=== PATIENT | female | born 1935 | race Caucasian/White ===

== ENCOUNTER 2017-10-09 16:57 | Inpatient (IN) ==
[2017-10-09] MEDS ORDERED: DEXTROSE 50% 25 GM/50 ML SYRINGE IV ONE (17:32)
[2017-10-09] MEDS ORDERED: SODIUM CHLORIDE 0.9% 1,000 ML IV STA (17:34)
[2017-10-09] MEDS ORDERED: HYDROCORTISONE 100 MG VIAL IV STA (17:34)
[2017-10-09] MEDS ORDERED: HYDROCORTISONE 100 MG VIAL ONE (18:19)
[2017-10-09 18:34] LABS: Basophils % 0.2 % (0.0-0.8); Eosinophils # 0.2 10*3/uL (0.0-0.87); Eosinophils % 1.5 % (0.00-10.9); Hematocrit 41.3 VOL% (35.7-47.0); Hemoglobin 12.9 GM/DL (12.0-16.0); Immature Granulocytes % 0.4 %; Immature Granulocytes Absolute 0.05 #; Lymphocytes # 3.2 10*3/uL (1.4-4.0); Lymphocytes % 24.6 % (21.3-54.2); Mean Corpuscular HGB Conc 31.2 GM/DL (32-36); Mean Corpuscular Hemoglobin 29 PG (27-34); Mean Corpuscular Volume 91.2 FL (87-102); Mean Platelet Volume 10.8 FL (9.6-12.0); Monocytes # 1.7 10*3/uL (0.11-0.8); Monocytes % 13.1 % (1.7-12.7); Neutrophils # 7.8 10*3/uL (1.4-7.4); Neutrophils % 60.2 % (38.7-73.9); Platelet Count 295 T/CUMM (130-400); Red Blood Count 4.53 MC/CUMM (3.8-5.5); Red Cell Distribution Width 13.2 % (9.3-17.3); White Blood Count 12.9 T/CUMM (4-12)
[2017-10-09 18:43] LABS: PT Patient Result 10.5 SECS
[2017-10-09 18:46] LABS: Ammonia 20 UMOL/L (11-32)
[2017-10-09 18:50] LABS: Alanine Aminotransferase 25 U/L (13-56); Albumin 2.8 G/DL (3.4-5.0); Alkaline Phosphatase 93 U/L (45-117); Aspartate Amino Transferase 89 U/L (0-37); Blood Urea Nitrogen 24 MG/DL (7-18); Calcium 8.8 MG/DL (8.5-10.1); Glucose 92 MG/DL (74-106); Osmolality,Calculated 276.8 MOS/KG (273-304); Sodium 137 MMOL/L (136-145); Total Protein 6.8 G/DL (6.4-8.3); Troponin I Only < 0.015 NG/ML (0.00-0.045)
[2017-10-09 18:52] LABS: Potassium 6.4 MMOL/L (3.5-5.1)
[2017-10-09] MEDS ORDERED: CALCIUM CHLORIDE 1,000 MG/10 ML SYRINGE IV STA (18:53)
[2017-10-09] MEDS ORDERED: SODIUM POLYSTYRENE SULFATE 15 GM/60 ML BOTTLE PO STA (18:53)
[2017-10-09] MEDS ORDERED: SODIUM BICARBONATE 50 MEQ/50 ML VIAL IV STA (18:53)
[2017-10-09 19:13] LABS: Apearance,Urine CLEAR (Clear); Bilirubin,Urine Negative (Negative); Blood, Urine Small mg/dL (Negative); Glucose,Urine (UA) Negative (Negative); Hyaline Casts,Urine 3 /LPF (0-3); Ketones,Urine 5 mg/dL (Negative); Mucus,Urine Occasional /LPF (Occasional); Nitrite,Urine Negative (Negative); Protein,Urine Negative; RBC,Urine 2 /HPF (0-4); Squamous Epithelial Cell,Urine Occasional /HPF (0-10); Urine Color Yellow (Yellow); Urine Specific Gravity 1.011 (1.001-1.035); Urine Urobilinogen < 2.0 EU/DL (0.2-1.0); WBC,Urine 1 /HPF (0-6)
[2017-10-09] MEDS ORDERED: CALCIUM CHLORIDE 1,000 MG/10 ML SYRINGE IV ONE (19:38)
[2017-10-09] MEDS ORDERED: SODIUM BICARBONATE 50 MEQ/50 ML SYRINGE IV ONE (19:38)
[2017-10-09] MEDS ORDERED: SODIUM POLYSTYRENE SULFATE 15 GM/60 ML BOTTLE ONE (20:53)
[2017-10-09 21:27] LABS: ABG Base Excess -10.6 MMOL/L (-2.5-2.5); ABG HCO3 16.1 MMOL/L (20-26); ABG Oxygen Saturation 94.1 % (95-100); ABG PCO2 36.8 MM HG (35-48); ABG PH 7.249 (7.35-7.45); ABG PO2 77.9 MM HG (80-95); ABG TCO2 14.5 MMOL/L (23-27)
[2017-10-09] MEDS ORDERED: DEXTROSE 50% 25 GM/50 ML VIAL IV PRN (23:27)
[2017-10-09] MEDS ORDERED: ONDANSETRON 4 MG/2 ML VIAL IV PRN (23:27)
[2017-10-09] MEDS ORDERED: GLUCAGON 1 MG VIAL IM PRN (23:27)
[2017-10-09] MEDS ORDERED: ACETAMINOPHEN 325 MG TABLET PO PRN (23:27)
[2017-10-09] MEDS ORDERED: LACTULOSE 20 GM/30 ML UDCUP PO PRN (23:27)
[2017-10-09] MEDS: SODIUM CHLORIDE 0.9% 1,000 ML IV SCH (23:50)
[2017-10-10] MEDS: INSULIN REGULAR 100 UNIT/ML SUBCUT SCH ×5 (00:17→20:22)
[2017-10-10] MEDS: DOCUSATE SODIUM 100 MG CAPSULE PO SCH ×3 (01:38→20:19)
[2017-10-10] MEDS: SODIUM POLYSTYRENE SULFATE 15 GM/60 ML BOTTLE PO SCH ×4 (01:39→23:22)
[2017-10-10 04:03] LABS: Apearance,Urine CLEAR (Clear); Bacteria,Urine Occasional /HPF (Few); Bilirubin,Urine Negative (Negative); Blood, Urine Moderate mg/dL (Negative); Glucose,Urine (UA) Negative (Negative); Ketones,Urine 20 mg/dL (Negative); Mucus,Urine Occasional /LPF (Occasional); Nitrite,Urine Negative (Negative); Protein,Urine 30 MG/DL; RBC,Urine 4 /HPF (0-4); Squamous Epithelial Cell,Urine Occasional /HPF (0-10); Urine Color Straw (Yellow); Urine Specific Gravity 1.009 (1.001-1.035); Urine Urobilinogen < 2.0 EU/DL (0.2-1.0); WBC,Urine <1 /HPF (0-6)
[2017-10-10 05:11] LABS: Basophils % 0.1 % (0.0-0.8); Hematocrit 39.1 VOL% (35.7-47.0); Hemoglobin 12.4 GM/DL (12.0-16.0); Immature Granulocytes % 0.7 %; Immature Granulocytes Absolute 0.08 #; Lymphocytes # 1.5 10*3/uL (1.4-4.0); Lymphocytes % 12.5 % (21.3-54.2); Mean Corpuscular HGB Conc 31.7 GM/DL (32-36); Mean Corpuscular Hemoglobin 28 PG (27-34); Mean Corpuscular Volume 89.5 FL (87-102); Mean Platelet Volume 10.9 FL (9.6-12.0); Monocytes # 0.9 10*3/uL (0.11-0.8); Monocytes % 7.9 % (1.7-12.7); Neutrophils # 9.4 10*3/uL (1.4-7.4); Neutrophils % 78.8 % (38.7-73.9); Platelet Count 287 T/CUMM (130-400); Red Blood Count 4.37 MC/CUMM (3.8-5.5); Red Cell Distribution Width 13.2 % (9.3-17.3); White Blood Count 11.9 T/CUMM (4-12)
[2017-10-10 05:47] LABS: Albumin 2.7 G/DL (3.4-5.0); Bilirubin,Total 1.5 MG/DL (0.2-1.0); Calcium 9.3 MG/DL (8.5-10.1); Osmolality,Calculated 280.8 MOS/KG (273-304); Risk Ratio 3.51; Total Protein 6.4 G/DL (6.4-8.3); VLDL CHOLESTEROL 24.2 MG/DL
[2017-10-10 05:49] LABS: Potassium 6.8 MMOL/L (3.5-5.1)
[2017-10-10] MEDS ORDERED: MAGNESIUM SULFATE 2 GM/50 ML PREMIX IV ONE (06:11)
[2017-10-10] MEDS ORDERED: DEXTROSE 50% 25 GM/50 ML VIAL IV ONE (06:12)
[2017-10-10] MEDS ORDERED: INSULIN REGULAR 100 UNIT/ML IV ONE (06:12)
[2017-10-10] MEDS: SODIUM CHLORIDE 0.9% 1,000 ML IV SCH (08:55)
[2017-10-10] MEDS ORDERED: cloNIDine 0.1 MG TABLET PO SCH (09:00)
[2017-10-10] MEDS ORDERED: PANTOPRAZOLE 40 MG VIAL IV SCH (09:00)
[2017-10-10] MEDS ORDERED: HYDROCORTISONE 100 MG VIAL IV ONE (09:00)
[2017-10-10] MEDS: INSULIN NPH/REGULAR 70/30 100 UNIT/ML SUBCUT SCH ×2 (09:26→17:30)
[2017-10-10] MEDS: ESTRADIOL 1 MG TABLET PO SCH (09:27)
[2017-10-10] MEDS: PARoxetine 20 MG TABLET PO SCH (09:27)
[2017-10-10] MEDS: PANTOPRAZOLE 40 MG TABLET PO SCH (09:27)
[2017-10-10] MEDS: VITAMIN E 400 UNIT CAPSULE PO SCH (09:27)
[2017-10-10] MEDS: MULTIVITAMIN (CENTRUM) TABLET PO SCH (09:27)
[2017-10-10] MEDS: MEMANTINE 10 MG TABLET PO SCH ×2 (09:28→20:19)
[2017-10-10] MEDS: ATORVASTATIN 80 MG TABLET PO SCH (09:28)
[2017-10-10] MEDS: ASPIRIN EC 81 MG TABLET PO SCH (09:28)
[2017-10-10] MEDS: DILTIAZEM CD 120 MG CAPSULE PO SCH (09:28)
[2017-10-10] MEDS: OMEGA 3 ACID ETHYL ESTERS 1 GM CAPSULE PO SCH (09:29)
[2017-10-10] MEDS: FLUDROCORTISONE 0.1 MG TABLET PO SCH (09:32)
[2017-10-10] MEDS: HYDROCORTISONE 100 MG VIAL IV SCH ×2 (09:36→17:30)
[2017-10-10] MEDS: FLUCONAZOLE 100 MG TABLET PO SCH (09:36)
[2017-10-10] MEDS: DEXTROSE 5% NACL 0.9% 1,000 ML IV SCH ×2 (10:00→21:42)
[2017-10-10 14:23] LABS: Calcium 8.6 MG/DL (8.5-10.1); Osmolality,Calculated 278.8 MOS/KG (273-304); Potassium 5.1 MMOL/L (3.5-5.1)
[2017-10-10] MEDS: traZODone 50 MG TABLET PO SCH (20:19)
[2017-10-10] MEDS: cloNIDine 0.1 MG TABLET PO PRN (20:19)
[2017-10-10] MEDS: DONEPEZIL 10 MG TABLET PO SCH (20:19)
[2017-10-11] MEDS: HYDROCORTISONE 100 MG VIAL IV SCH (01:25)
[2017-10-11 04:35] LABS: Basophils % 0.1 % (0.0-0.8); Hematocrit 36.1 VOL% (35.7-47.0); Hemoglobin 11.2 GM/DL (12.0-16.0); Immature Granulocytes % 0.5 %; Immature Granulocytes Absolute 0.07 #; Lymphocytes # 0.9 10*3/uL (1.4-4.0); Lymphocytes % 6.3 % (21.3-54.2); Mean Corpuscular Hemoglobin 28 PG (27-34); Mean Corpuscular Volume 90.5 FL (87-102); Mean Platelet Volume 11.1 FL (9.6-12.0); Monocytes # 0.5 10*3/uL (0.11-0.8); Monocytes % 3.9 % (1.7-12.7); Neutrophils # 12.5 10*3/uL (1.4-7.4); Neutrophils % 89.2 % (38.7-73.9); Platelet Count 249 T/CUMM (130-400); Red Blood Count 3.99 MC/CUMM (3.8-5.5); Red Cell Distribution Width 13.2 % (9.3-17.3)
[2017-10-11 05:05] LABS: Calcium 7.8 MG/DL (8.5-10.1); Osmolality,Calculated 287.4 MOS/KG (273-304); Potassium 4.7 MMOL/L (3.5-5.1)
[2017-10-11] MEDS: LEVOTHYROXINE 88 MCG TABLET PO SCH (07:43)
[2017-10-11] MEDS: SODIUM POLYSTYRENE SULFATE 15 GM/60 ML BOTTLE PO SCH (08:35)
[2017-10-11] MEDS: INSULIN REGULAR 100 UNIT/ML SUBCUT SCH ×4 (09:37→20:55)
[2017-10-11] MEDS: INSULIN NPH/REGULAR 70/30 100 UNIT/ML SUBCUT SCH ×2 (09:38→18:36)
[2017-10-11] MEDS: FLUDROCORTISONE 0.1 MG TABLET PO SCH (09:38)
[2017-10-11] MEDS: MULTIVITAMIN (CENTRUM) TABLET PO SCH (09:38)
[2017-10-11] MEDS: DOCUSATE SODIUM 100 MG CAPSULE PO SCH ×2 (09:39→20:32)
[2017-10-11] MEDS: ATORVASTATIN 80 MG TABLET PO SCH (09:39)
[2017-10-11] MEDS: ESTRADIOL 1 MG TABLET PO SCH (09:39)
[2017-10-11] MEDS: VITAMIN E 400 UNIT CAPSULE PO SCH (09:39)
[2017-10-11] MEDS: OMEGA 3 ACID ETHYL ESTERS 1 GM CAPSULE PO SCH (09:39)
[2017-10-11] MEDS: FLUCONAZOLE 100 MG TABLET PO SCH (09:39)
[2017-10-11] MEDS: DILTIAZEM CD 120 MG CAPSULE PO SCH (09:39)
[2017-10-11] MEDS: PANTOPRAZOLE 40 MG TABLET PO SCH (09:40)
[2017-10-11] MEDS: MEMANTINE 10 MG TABLET PO SCH ×2 (09:40→20:32)
[2017-10-11] MEDS: HYDROCORTISONE 10 MG TABLET PO SCH ×2 (09:40→15:36)
[2017-10-11] MEDS: PARoxetine 20 MG TABLET PO SCH (09:40)
[2017-10-11] MEDS: ASPIRIN EC 81 MG TABLET PO SCH (09:47)
[2017-10-11] MEDS: DEXTROSE 5% NACL 0.9% 1,000 ML IV SCH (13:08)
[2017-10-11] MEDS ORDERED: HYDROCORTISONE 10 MG TABLET PO SCH ×2 (14:00→21:00)
[2017-10-11] MEDS: DONEPEZIL 10 MG TABLET PO SCH (20:32)
[2017-10-11] MEDS: traZODone 50 MG TABLET PO SCH (20:32)
[2017-10-12] MEDS: DEXTROSE 5% NACL 0.9% 1,000 ML IV SCH ×2 (03:08→20:49)
[2017-10-12] MEDS: cloNIDine 0.1 MG TABLET PO PRN (03:55)
[2017-10-12 05:10] LABS: Basophils % 0.1 % (0.0-0.8); Eosinophils % 0.2 % (0.00-10.9); Hematocrit 32.5 VOL% (35.7-47.0); Hemoglobin 10.6 GM/DL (12.0-16.0); Immature Granulocytes % 0.5 %; Immature Granulocytes Absolute 0.07 #; Lymphocytes # 3.2 10*3/uL (1.4-4.0); Lymphocytes % 23.5 % (21.3-54.2); Mean Corpuscular HGB Conc 32.6 GM/DL (32-36); Mean Corpuscular Hemoglobin 29 PG (27-34); Mean Corpuscular Volume 88.3 FL (87-102); Monocytes # 1.2 10*3/uL (0.11-0.8); Monocytes % 8.6 % (1.7-12.7); Neutrophils # 9.2 10*3/uL (1.4-7.4); Neutrophils % 67.1 % (38.7-73.9); Platelet Count 241 T/CUMM (130-400); Red Blood Count 3.68 MC/CUMM (3.8-5.5); Red Cell Distribution Width 13.3 % (9.3-17.3); White Blood Count 13.7 T/CUMM (4-12)
[2017-10-12 05:33] LABS: Calcium 7.6 MG/DL (8.5-10.1); Osmolality,Calculated 293.7 MOS/KG (273-304); Potassium 3.4 MMOL/L (3.5-5.1)
[2017-10-12] MEDS ORDERED: ALPRAZolam 0.25 MG TABLET PO PRN (09:00)
[2017-10-12] MEDS ORDERED: POTASSIUM CHLORIDE 8 MEQ CAPSULE PO SCH (09:00)
[2017-10-12] MEDS: ACETAMINOPHEN 325 MG TABLET PO SCH ×2 (10:02→20:43)
[2017-10-12] MEDS: OMEGA 3 ACID ETHYL ESTERS 1 GM CAPSULE PO SCH (10:02)
[2017-10-12] MEDS: FLUCONAZOLE 100 MG TABLET PO SCH (10:03)
[2017-10-12] MEDS: ASPIRIN EC 81 MG TABLET PO SCH (10:03)
[2017-10-12] MEDS: HYDROCORTISONE 10 MG TABLET PO SCH ×2 (10:03→10:12)
[2017-10-12] MEDS: MULTIVITAMIN (CENTRUM) TABLET PO SCH (10:03)
[2017-10-12] MEDS: MEMANTINE 10 MG TABLET PO SCH ×2 (10:04→20:43)
[2017-10-12] MEDS: ESTRADIOL 1 MG TABLET PO SCH (10:04)
[2017-10-12] MEDS: VITAMIN E 400 UNIT CAPSULE PO SCH (10:04)
[2017-10-12] MEDS: FLUDROCORTISONE 0.1 MG TABLET PO SCH (10:04)
[2017-10-12] MEDS: DOCUSATE SODIUM 100 MG CAPSULE PO SCH ×2 (10:05→20:43)
[2017-10-12] MEDS: LEVOTHYROXINE 88 MCG TABLET PO SCH (10:05)
[2017-10-12] MEDS: PARoxetine 20 MG TABLET PO SCH (10:05)
[2017-10-12] MEDS: ATORVASTATIN 80 MG TABLET PO SCH (10:06)
[2017-10-12] MEDS: DILTIAZEM CD 120 MG CAPSULE PO SCH (10:06)
[2017-10-12] MEDS: PANTOPRAZOLE 40 MG TABLET PO SCH (10:07)
[2017-10-12] MEDS: INSULIN NPH/REGULAR 70/30 100 UNIT/ML SUBCUT SCH ×2 (10:10→17:20)
[2017-10-12] MEDS: INSULIN REGULAR 100 UNIT/ML SUBCUT SCH ×4 (10:12→22:54)
[2017-10-12] MEDS: traZODone 50 MG TABLET PO SCH (20:43)
[2017-10-12] MEDS: DONEPEZIL 10 MG TABLET PO SCH (20:43)
[2017-10-13 05:19] LABS: Basophils % 0.1 % (0.0-0.8); Eosinophils # 0.1 10*3/uL (0.0-0.87); Eosinophils % 0.8 % (0.00-10.9); Hematocrit 33.3 VOL% (35.7-47.0); Hemoglobin 10.3 GM/DL (12.0-16.0); Immature Granulocytes % 0.6 %; Immature Granulocytes Absolute 0.09 #; Lymphocytes # 3.8 10*3/uL (1.4-4.0); Lymphocytes % 25.5 % (21.3-54.2); Mean Corpuscular HGB Conc 30.9 GM/DL (32-36); Mean Corpuscular Hemoglobin 28 PG (27-34); Mean Corpuscular Volume 91.2 FL (87-102); Mean Platelet Volume 11.2 FL (9.6-12.0); Monocytes # 1.5 10*3/uL (0.11-0.8); Monocytes % 10.3 % (1.7-12.7); Neutrophils # 9.3 10*3/uL (1.4-7.4); Neutrophils % 62.7 % (38.7-73.9); Platelet Count 234 T/CUMM (130-400); Red Blood Count 3.65 MC/CUMM (3.8-5.5); Red Cell Distribution Width 13.2 % (9.3-17.3); White Blood Count 14.9 T/CUMM (4-12)
[2017-10-13 05:48] LABS: Calcium 7.4 MG/DL (8.5-10.1); Osmolality,Calculated 291.7 MOS/KG (273-304); Potassium 3.2 MMOL/L (3.5-5.1)
[2017-10-13] MEDS: INSULIN REGULAR 100 UNIT/ML SUBCUT SCH ×4 (08:52→22:35)
[2017-10-13] MEDS: LEVOTHYROXINE 88 MCG TABLET PO SCH (10:13)
[2017-10-13] MEDS: POTASSIUM CHLORIDE 8 MEQ CAPSULE PO SCH ×2 (10:13→20:47)
[2017-10-13] MEDS: ASPIRIN EC 81 MG TABLET PO SCH (10:14)
[2017-10-13] MEDS: DOCUSATE SODIUM 100 MG CAPSULE PO SCH ×2 (10:14→20:47)
[2017-10-13] MEDS: FLUCONAZOLE 100 MG TABLET PO SCH (10:14)
[2017-10-13] MEDS: DILTIAZEM CD 120 MG CAPSULE PO SCH (10:15)
[2017-10-13] MEDS: PANTOPRAZOLE 40 MG TABLET PO SCH (10:16)
[2017-10-13] MEDS: FLUDROCORTISONE 0.1 MG TABLET PO SCH (10:16)
[2017-10-13] MEDS: PARoxetine 20 MG TABLET PO SCH (10:17)
[2017-10-13] MEDS: MEMANTINE 10 MG TABLET PO SCH ×2 (10:18→20:47)
[2017-10-13] MEDS: ESTRADIOL 1 MG TABLET PO SCH (10:18)
[2017-10-13] MEDS: HYDROCORTISONE 10 MG TABLET PO SCH ×3 (10:19→17:19)
[2017-10-13] MEDS: VITAMIN E 400 UNIT CAPSULE PO SCH (10:20)
[2017-10-13] MEDS: OMEGA 3 ACID ETHYL ESTERS 1 GM CAPSULE PO SCH (10:21)
[2017-10-13] MEDS: MULTIVITAMIN (CENTRUM) TABLET PO SCH (10:21)
[2017-10-13] MEDS: ACETAMINOPHEN 325 MG TABLET PO SCH ×2 (10:22→20:47)
[2017-10-13] MEDS: ATORVASTATIN 80 MG TABLET PO SCH (10:24)
[2017-10-13] MEDS: DICLOFENAC 1% GEL 100 GM TUBE TOP SCH ×3 (10:40→20:47)
[2017-10-13] MEDS: INSULIN NPH/REGULAR 70/30 100 UNIT/ML SUBCUT SCH ×2 (10:41→17:11)
[2017-10-13] MEDS: traZODone 50 MG TABLET PO SCH (20:47)
[2017-10-13] MEDS: DONEPEZIL 10 MG TABLET PO SCH (20:47)
[2017-10-14 05:04] LABS: Basophils % 0.2 % (0.0-0.8); Eosinophils # 0.1 10*3/uL (0.0-0.87); Eosinophils % 0.7 % (0.00-10.9); Hematocrit 34.1 VOL% (35.7-47.0); Hemoglobin 10.8 GM/DL (12.0-16.0); Immature Granulocytes % 0.5 %; Immature Granulocytes Absolute 0.08 #; Lymphocytes # 3.8 10*3/uL (1.4-4.0); Lymphocytes % 23.2 % (21.3-54.2); Mean Corpuscular HGB Conc 31.7 GM/DL (32-36); Mean Corpuscular Hemoglobin 29 PG (27-34); Mean Platelet Volume 11.1 FL (9.6-12.0); Monocytes # 1.3 10*3/uL (0.11-0.8); Monocytes % 8.1 % (1.7-12.7); Neutrophils % 67.3 % (38.7-73.9); Platelet Count 243 T/CUMM (130-400); Red Blood Count 3.79 MC/CUMM (3.8-5.5); White Blood Count 16.3 T/CUMM (4-12)
[2017-10-14 05:48] LABS: Calcium 7.6 MG/DL (8.5-10.1); Osmolality,Calculated 289.7 MOS/KG (273-304); Potassium 3.2 MMOL/L (3.5-5.1)
[2017-10-14] MEDS: INSULIN REGULAR 100 UNIT/ML SUBCUT SCH ×2 (07:54→12:38)
[2017-10-14] MEDS: LEVOTHYROXINE 88 MCG TABLET PO SCH (07:55)
[2017-10-14] MEDS: DILTIAZEM CD 120 MG CAPSULE PO SCH (09:35)
[2017-10-14] MEDS: MULTIVITAMIN (CENTRUM) TABLET PO SCH (09:35)
[2017-10-14] MEDS: POTASSIUM CHLORIDE 8 MEQ CAPSULE PO SCH (09:35)
[2017-10-14] MEDS: ACETAMINOPHEN 325 MG TABLET PO SCH (09:35)
[2017-10-14] MEDS: ASPIRIN EC 81 MG TABLET PO SCH (09:36)
[2017-10-14] MEDS: OMEGA 3 ACID ETHYL ESTERS 1 GM CAPSULE PO SCH (09:36)
[2017-10-14] MEDS: MEMANTINE 10 MG TABLET PO SCH (09:36)
[2017-10-14] MEDS: FLUCONAZOLE 100 MG TABLET PO SCH (09:36)
[2017-10-14] MEDS: PARoxetine 20 MG TABLET PO SCH (09:36)
[2017-10-14] MEDS: HYDROCORTISONE 10 MG TABLET PO SCH ×2 (09:36→09:37)
[2017-10-14] MEDS: FLUDROCORTISONE 0.1 MG TABLET PO SCH (09:36)
[2017-10-14] MEDS: PANTOPRAZOLE 40 MG TABLET PO SCH (09:37)
[2017-10-14] MEDS: ATORVASTATIN 80 MG TABLET PO SCH (09:37)
[2017-10-14] MEDS: INSULIN NPH/REGULAR 70/30 100 UNIT/ML SUBCUT SCH (09:37)
[2017-10-14] MEDS: ESTRADIOL 1 MG TABLET PO SCH (09:37)
[2017-10-14] MEDS: VITAMIN E 400 UNIT CAPSULE PO SCH (09:37)
[2017-10-14] MEDS: DOCUSATE SODIUM 100 MG CAPSULE PO SCH (09:37)
[2017-10-14] MEDS: DICLOFENAC 1% GEL 100 GM TUBE TOP SCH (09:38)
[2017-10-14 12:08] VITALS: BP 102/59
== END 2017-10-14 12:37 | DRG 683 ==
LOC: EDBD → EDUNIT# → N.ED 16:57 → N.EDINP 20:06 → N.CC 22:41 → N.4E 10-11 15:59
PROVIDERS: ADMIT Internal Medicine; ATTEND Internal Medicine